=== PATIENT | female | born 1940 | race Caucasian/White ===

== ENCOUNTER 2019-10-05 05:24 | Day surgery (SDC) ==
--- NOTE | 2019-09-29 10:55 | EKG Report ---
Test Performed on : 09/29/2019 10:50:44 AM Test Reason : PAT Blood Pressure : / mmHG Vent. Rate : 045 BPM Atrial Rate : 045 BPM P-R Int : 180 ms QRS Dur : 084 ms QT Int : 526 ms P-R-T Axes : 020 089 069 degrees QTc Int : 454 ms Sinus bradycardia. with marked sinus arrhythmia. Septal infarct (cited on or before 29-OCT-2018) Abnormal ECG When compared with ECG of 29-OCT-2018 17:25, Questionable change in initial forces of Septal leads Confirmed by Thee MCKENZIE, Leo Huertas ([id number]) on 10/01/2019 7:00:49 PM
[2019-09-29 10:56] LABS: URINE SOURCE VOIDED
--- NOTE | 2019-09-29 11:11 | Diag Imaging Result Doc PS360 ---
EXAM: CHEST-2 VIEWS 09/29/2019 HISTORY: PAT TECHNIQUE: PA and lateral chest COMMENT: There is no evidence of acute cardiac disease. There is apparent atelectasis in the right middle lobe. There are no previous studies. IMPRESSION: Right middle lobe atelectasis. Electronically signed by Haroon Aburto 09/29/2019 11:09 AM
[2019-09-29 11:26] LABS: BASO# 0.07 X1000 (0.0-0.2); EOS# 0.09 X1000 (0.0-0.7); EOS% 1.3 % (0.0-10.0); HEMATOCRIT 46.3 % (37.0-47.0); HEMOGLOBIN 15.1 g/dL (12.0-16.0); LYMPH% 15.9 % (20.5-51.1); MCHC 32.6 g/dL (33-37); MCV 101.1 FL (81-99); MONO# 0.77 X1000 (0.11-0.59); MONO% 11.1 % (1.7-9.3); MPV 10.3 FL (7.4-10.4); NEUT# 4.89 X1000 (1.4-6.5); NEUT% 70.7 % (42.2-75.2); PLT 321 X1000 (130-400); RBC 4.58 XMIL (4.2-5.4); RDW 16.1 % (11.5-14.5); WBC 6.92 X1000 (4.8-10.8)
[2019-09-29 11:28] LABS: BILIRUBIN URINE NEGATIVE (NEGATIVE); BLOOD URINE NEGATIVE (NEGATIVE); COLOR YELLOW; GLUCOSE URINE NEGATIVE (NEGATIVE); KETONE URINE NEGATIVE (NEGATIVE); LEUKOCYTES URINE NEGATIVE (NEGATIVE); NITRITE URINE NEGATIVE (NEGATIVE); PROTEIN URINE NEGATIVE (NEGATIVE); SP GRAVITY URINE 1.015; TURBIDITY URINE CLEAR (CLEAR); UROBILINOGEN URINE NORMAL (NORMAL)
[2019-09-29 11:32] LABS: UR EPITHELIAL CELLS <10 /HPF (<10); URINE BACTERIA 1+ /HPF; URINE RBC <10 /HPF (<10); URINE WBC <10 /HPF (<10)
[2019-09-29 11:43] LABS: ALB/GLOB RATIO 1.4; ALBUMIN 3.9 g/dL (3.5-5.0); CALCIUM 8.5 mg/dL (8.8-10.2); CREATININE 1.2 mg/dL (0.5-0.9); POTASSIUM 4.4 mmol/L (3.5-5.1); TOTAL BILIRUBIN 0.31 mg/dL (0.20-1.00); TOTAL PROTEIN 6.6 g/dL (6.3-8.3)
[2019-10-05] MEDS ORDERED: KEFZOL 1 GM/D5W 1 GM/50 ML IVPB ONE (06:52)
[2019-10-05] MEDS ORDERED: LR 1,000 ML ONE (06:52)
[2019-10-05] MEDS ORDERED: DIPRIVAN 1% ONE (07:12)
[2019-10-05] MEDS ORDERED: XYLOCAINE-MPF 2% ONE (07:12)
--- NOTE | 2019-10-05 07:23 | Diag Imaging Result Doc PS360 ---
LYMPHOSCINTIGRAPHY W/IMG - 10/05/2019 INDICATION: RT BREAST CA COMPARISON: None FINDINGS: 540 uCi of radiotracer was injected into the left breast. After the appropriate delay, there was faint appearance of a possible sentinel lymph node in the axilla. IMPRESSION: Faint appearance of a possible sentinel lymph node in the right axilla. Electronically signed by Dada Quintanilla 10/05/2019 7:21 AM
[2019-10-05] MEDS ORDERED: TRANSDERM-SCOP ONE (08:09)
[2019-10-05] MEDS ORDERED: SENSORCAINE-MPF 0.5%/EPI 1:200,000 ONE (08:19)
[2019-10-05] MEDS ORDERED: ROBINUL ONE (08:41)
[2019-10-05] MEDS ORDERED: ZOFRAN ONE (08:53)
[2019-10-05] MEDS ORDERED: DECADRON ONE (08:53)
[2019-10-05] MEDS ORDERED: OFIRMEV 1000 MG/ISOTONIC SOLN 1,000 MG/100 ML BOTTLE ONE (08:55)
[2019-10-05] MEDS: DILAUDID ONE ×4 (09:53→10:18)
[2019-10-05] MEDS ORDERED: NORCO-10 ONE (09:54)
[2019-10-05] MEDS ORDERED: ZOFRAN IV PRN (11:15)
[2019-10-05] MEDS ORDERED: NORCO-10 PO PRN (11:15)
[2019-10-05] MEDS ORDERED: D5 1/2 NS 1,000 ML IV SCH (11:15)
--- NOTE | 2019-10-05 14:42 | OPERATIVE NOTE ---
PROCEDURE DATE: 10/05/2019 PREOPERATIVE NOTE: Lobular carcinoma right breast. POSTOPERATIVE DIAGNOSIS: Lobular carcinoma right breast. PROCEDURE: [place] node localization, ultrasound needle localization of the lesion with subsequent lumpectomy and sentinel nodes. PROCEDURE: The patient was brought to the operating room. After satisfactory induction of IV and LMA anesthesia, her right breast was prepped and draped in the appropriate manner. The wire was in the upper outer quadrant of the breast. An elliptical type incision incorporating the wire was taken sharply down through skin and subcutaneous tissue out to the area of the of the localized sentinel node with the James counter. Dissection was taken down to the clavipectoral fascia. The tissue was swept laterally with inclusion of the area involved in the needle. Hemostasis was obtained by electrocautery. The specimen was removed on with Bond counter guidance. At least 1 sentinel node was removed. Hemostasis again was obtained by electrocautery or hemoclips. On completion, the wound was irrigated. It was infiltrated with 20 mL of Marcaine with epinephrine. The subcutaneous was closed with 3-0 Vicryl and the skin itself with 4-0 Vicryl subcuticular. Steri-Strips, Telfa, and OpSite were applied. She was awakened and extubated in the operating room and transferred to recovery. ESTIMATED BLOOD LOSS: Was around 20 mL. cc: Mihai Warren MD
[2019-10-06 07:14] VITALS: BP 115/82
== END 2019-10-06 09:34 | disposition home or self-care (01) ==
LOC: OPS 05:24 → PAT 05:24 → 4N 05:24 → OPS 10-06 09:34
PROVIDERS: ATTEND Surgery